=== PATIENT | female | born 1985 | race Caucasian/White ===

== ENCOUNTER 2017-08-22 06:53 | Observation (INO) | payer OTHER ==
--- NOTE | 2017-08-18 21:42 | PDGENHP ---
History and Physical History and Physical: Assessment and Plan: 1. Endometriosis determined by laparoscopy Sharla was found to have a 1.5 cm cystic structure consistent consistent with endometriosis in the right vaginal fornix. I could palpate it through the rectum. She was sent downstairs for a CT scan to rule out any rectal involvement. None was seen. We again reviewed all conservative and surgical options. At the end of the discussion she wished to proceed with robotic excision of endometriosis. The risks benefits and alternatives were presented and informed consent was obtained. 2. Dysmenorrhea 3. Endometriosis, rectovaginal septum - CT PELVIS WITH CONTRAST; Future Subjective: Patient ID: Sharla Nolan is a 31 y.o. female who presents to [facility] for endometriosis. LAURA Magdaleno is a 31-year-old 0 woman with endometriosis. She has a long history of dysmenorrhea and pelvic pain. In October 2012 she underwent excision of a 6 cm left ovarian endometrioma by Dr. Rafa De Anda in [place]. Unfortunately her pain persisted. She underwent a hysterosalpingogram in March 2016 which showed normal spillage from both tubes. She developed a recurrent endometrioma with continued pain and underwent a second laparoscopy in November 2016. She was found to have an obliterated cul-de-sac with extensive endometriosis. Dr. De Anda removed her left tube and ovary. I was able to review intraoperative photos which are in her EPIC chart showing the sigmoid attached to the lower uterine segment and cervix with endometriosis throughout the posterior cul-de-sac as well as on the surface of the right ovary which was still present at the conclusion of the procedure. Sharla continues to suffer from dysmenorrhea, pelvic pain, and dyschezia. She has tried various contraceptive options without benefit. She is recently . 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 However she recently moved back to [place] is working as a certified ski patroller. We reviewed all conservative and surgical options. She wishes to pursue surgical intervention given her poor quality of life. This will be a robotic excision of endometriosis. I will need to clear out the entire posterior cul-de -sac and both ovarian fossas. She also was reported to have deep endometriosis in the anterior cul-de-sac which will require complete excision. 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 COQ10, LIPOSOMAL UBIQUINOL, PO Take 100 mg by mouth daily. DULoxetine (CYMBALTA) [address] capsule Take 20 mg by mouth daily. fluticasone (FLONASE) 50 mcg/actuation nasal spray Use 2 sprays in each nostril daily as needed for Allergies. HYDROcodone-acetaminophen (NORCO) #6 tablet pre-pack Take 1-2 tablets by mouth every 6 hours as needed. This med has acetaminophen (APAP). LACTOBACILLUS ACIDOPHILUS (PROBIOTIC PO) Take 1 tablet by mouth daily. levothyroxine (SYNTHROID) 75 mcg tablet 75 mcg daily. multivitamin w/ minerals (THERAPEUTIC-M) 27-0.4 mg tablet Take 1 tablet by mouth daily. GD-Ckn-Hwufq Acid-Lutein 0.4-250 mg-mcg Tab Take by mouth daily. MARTIN-BE 0.35 mg tablet Take 1 tablet by mouth nightly at bedtime. omega-3 acid ethyl esters, fish oil, (LOVAZA) 1 gram capsule Take 2 g by mouth 2 times daily. omeprazole (PRILOSEC) 20 mg capsule for Gastric Ulcer. Take 1 capsule by mouth twice a day for 2 weeks and then 1 capsule once daily thereafter. oxyCODONE (ROXICODONE) 5 mg immediate release tablet Take 5-10 mg by mouth every 6 hours as needed. prazosin (MINIPRESS) 1 mg capsule Take 1 mg by mouth nightly at bedtime. PSYLLIUM SEED, WITH SUGAR, (METAMUCIL PO) Take 2 capsules by mouth nightly at bedtime. [place] Jelly-Bee Pollen-Ginseng 50-150-250 mg Cap Take 1 capsule by mouth nightly at bedtime. SODIUM CHLORIDE (SALINE NASAL NA) 1 spray by Nasal route as needed. traMADol (ULTRAM) 50 mg tablet Take 50 mg by mouth as needed. traZODone (DESYREL) 50 mg tablet Take 50 mg by mouth nightly at bedtime for insomnia associated with depression. No current facility-administered medications for this visit. Facility-Administered Medications Ordered in Other Visits Medication NS irrigation bag 1000 mL (for OR) ALLERGIES: Nsaids (non-steroidal anti-inflammatory drug) I have reviewed, verified and agree with the past medical, surgical, , family, social and ROS history as documented by the RN today. Objective: Vital Signs: There were no vitals taken for this visit. Physical Exam Gen: This is an alert, well developed woman in no distress. Neuro: She moves all extremities. Psych: She is appropriate, oriented, with normal affect. Neck: No thyroid enlargement, adenopathy, or tenderness. Lungs: Clear to ascultation, no wheezes or rales. Heart: Regular rate and rhythm without obvious murmurs. Abdomen: Soft, non-tender, without guarding, rebound, or masses. Extremities: No edema or cyanosis. Pelvic: Normal external genitalia. Non-gaping introitus, vagina without discharge, adequately estrogenized, no significant prolapse. There is a 1.5 x 2 cm rectal endovaginal nodule in the right posterior fornix adjacent to the cervix. This is palpable on rectal exam bulging and distorting the right anterolateral rectal wall. It does not appear to involve the rectal mucosa. The area is exquisitely tender. The uterus is normal sized with minimal mobility. Uterus and adnexa are tender. Cervix without lesions or discharge. DATA: I have reviewed the pertinent medical records. TIME/COMMUNICATION: I personally spent a total of 70 minutes. Of that 55 minutes was counseling/ coordination of patient's care. See my note above for details. German Alcaraz MD Board Certified Female Pelvic Medicine and Reconstructive Surgery Director of Minimally Invasive Gynecologic Surgery, [facility] Surgeon in Minimally Invasive Gynecologic Surgery [facility] Surgeon in Robotic Surgery
[2017-08-22] MEDS ORDERED: ACETAMINOPHEN 500 MG TAB PO ONE (07:25)
[2017-08-22] MEDS ORDERED: ceFAZolin 2 GM/SWFI 2 GM/20 ML SYR IVP ONE (07:25)
[2017-08-22] MEDS ORDERED: PHENAZOPYRIDINE HCL 200 MG TAB PO ONE (07:25)
[2017-08-22] MEDS ORDERED: GABAPENTIN 400 MG CAP PO ONE (07:25)
[2017-08-22] MEDS ORDERED: LIDOCAINE 1% 2 ML INJ ID PRN (07:26)
[2017-08-22] MEDS ORDERED: LR 1,000 ML IV ONE (07:26)
--- NOTE | 2017-08-22 08:46 | PDHPUP ---
History & Physical Update H&P update statement: This history and physical update is based on an assessment of the patient which was completed after admission or registration (within 24 hours), but prior to the surgery/procedure. H&P update: H&P reviewed & patient examined, no change in patient's condition since H&P completed
[2017-08-22] MEDS ORDERED: BUPIVACAINE/EPI 0.5% 30 ML SDV ONE (09:01)
[2017-08-22] MEDS ORDERED: SCOPOLAMINE HYDROBROMIDE 1 MG/3 DAYS PATCH TD ONE (09:03)
[2017-08-22] MEDS ORDERED: fentaNYL 100 MCG/2 ML INJ ONE ×3 (09:12→12:37)
[2017-08-22] MEDS ORDERED: MIDAZOLAM 2 MG/2 ML VIAL ONE (09:13)
[2017-08-22] MEDS ORDERED: PROPOFOL/EMULSION 500 MG/50 ML BOTTLE IV ONE (09:13)
[2017-08-22] MEDS ORDERED: ROCURONIUM 50 MG/5 ML VIAL ONE ×3 (09:33→11:18)
[2017-08-22] MEDS ORDERED: SUGAMMADEX SODIUM 200 MG/2 ML VIAL IVP ONE (09:33)
[2017-08-22] MEDS ORDERED: LIDOCAINE 2% 100 MG/5 ML SYR ONE (09:33)
[2017-08-22] MEDS ORDERED: KETOROLAC 30 MG/1 ML SDV ONE (09:33)
[2017-08-22] MEDS ORDERED: ONDANSETRON 4 MG/2 ML VIAL ONE (09:33)
[2017-08-22] MEDS ORDERED: DEXAMETHASONE 4 MG/ML VIAL ONE (09:33)
[2017-08-22] MEDS ORDERED: METOCLOPRAMIDE 10 MG/2 ML VIAL ONE (09:33)
[2017-08-22] MEDS ORDERED: LIDOCAINE 2% 5 ML SDV ONE (09:33)
[2017-08-22] MEDS ORDERED: RANITIDINE 50 MG/2 ML VIAL ONE (09:33)
[2017-08-22] MEDS ORDERED: ACETAMINOPHEN 500 MG TAB PO PRN (09:48)
[2017-08-22] MEDS ORDERED: ONDANSETRON 4 MG/2 ML VIAL IVP PRN ×2 (09:48→12:34)
[2017-08-22] MEDS ORDERED: ALBUTEROL 3 ML DEYVIAL IH PRN (09:48)
[2017-08-22] MEDS ORDERED: PROMETHAZINE HCL 25 MG/ML INJ IVP PRN ×2 (09:48→12:33)
[2017-08-22] MEDS ORDERED: METOCLOPRAMIDE 10 MG/2 ML VIAL IVP PRN (09:48)
[2017-08-22] MEDS ORDERED: LR 500 ML IV PRN (09:48)
[2017-08-22] MEDS ORDERED: NALOXONE HCL 0.4 MG/ML INJ IVP PRN (09:48)
[2017-08-22] MEDS ORDERED: MEPERIDINE 25 MG/ML SYR IVP PRN (09:48)
[2017-08-22] MEDS ORDERED: HYDROCODONE/APAP 5/325 TAB PO PRN (09:48)
[2017-08-22] MEDS ORDERED: DEXAMETHASONE 4 MG/ML VIAL IVP PRN (09:48)
[2017-08-22] MEDS ORDERED: oxyCODONE IR 5 MG TAB PO PRN (09:48)
--- NOTE | 2017-08-22 09:48 | PDANEPAE ---
ANE Past Medical History - Cardiovascular History Hx Hypertension: No Hx Arrhythmias: No Hx Chest Pain: No Hx Coronary Artery / Peripheral Vascular Disease: No Hx CHF / Valvular Disease: No Hx Palpitations: No Cardiovascular History Comment: prone to borderline anemia - Pulmonary History Hx COPD: No Hx Asthma/Reactive Airway Disease: No Hx Recent Upper Respiratory Infection: No Hx Oxygen in Use at Home: No Hx Sleep Apnea: No Sleep Apnea Screening Result - Last Documented: Negative - Neurologic History Hx Cerebrovascular Accident: No Hx Seizures: No Hx Dementia: No - Endocrine History Hx Diabetes: No Endocrine History Comment: Hu's, hypoglycemia - Renal History Hx Renal Disorders: No - Liver History Hx Hepatic Disorders: No - Neurological & Psychiatric Hx Hx Neurological and Psychiatric Disorders: Yes Neurological / Psychiatric History Comment: hx of depression,anxiety-no Rx - Cancer History Hx Cancer: No - Congenital Disorder History Hx Congenital Disorders: No - GI History Hx Gastrointestinal Disorders: Yes Gastrointestinal History Comment: constipation - Other Health History Other Health History: bowel endometriosis-sigmoid colon; Vit D deficiency; - Chronic Pain History Chronic Pain: Yes ("all over my body") - Surgical History Prior Surgeries: laparoscope x2. L salpingoo/ophorectomy ANE Review of Systems Review of Systems: - Exercise capacity METS (RN): 4 METS ANE Patient History - Allergies Allergies/Adverse Reactions: No Known Allergies Allergy (Unverified 07/24/17 11:22) - Home Medications Home Medications: Hydrocodone/Acetaminophen 07/24/17 [Last Taken 07/24/17] Levothyroxine 07/24/17 [Last Taken 08/22/17 05:00] Naloxegol Oxalate BID 07/24/17 [Last Taken 08/21/17 15:00] Senna 07/24/17 [Last Taken 07/24/17] traZODone 07/24/17 [Last Taken 08/08/17] - NPO status NPO Since - Liquids (Date): 08/22/17 NPO Since - Liquids (Time): 07:30 NPO Since - Solids (Date): 08/21/17 NPO Since - Solids (Time): 16:30 - Smoking Hx Smoking Status: Never smoked ANE Labs/Vital Signs - Vital Signs Blood Pressure: 119/87 Heart Rate: 78 Respiratory Rate: 16 O2 Sat (%): 100 Height: 154.94 cm Weight: 48.988 kg ANE Physical Exam - Airway Neck exam: FROM Mallampati Score: Class 1 Mouth exam: normal dental/mouth exam - Pulmonary Pulmonary: no respiratory distress, no rales or rhonchi, clear to auscultation - Cardiovascular Cardiovascular: regular rate and rhythym, no murmur, rub, or gallop - ASA Status ASA Status: II ANE Anesthesia Plan Anesthesia Plan: general endotracheal anesthesia
[2017-08-22] MEDS ORDERED: PROPOFOL 200 MG/20 ML VIAL ONE (11:17)
[2017-08-22] MEDS ORDERED: HYDROmorphONE/DILAUDID 1 MG/ML INJ IVP PRN (12:33)
--- NOTE | 2017-08-22 12:33 | POSTOPPROG ---
Post Op Note Date of Operation: 08/22/17 Surgeon: German Alcaraz Center Machine Set Up Operator: Veronica Cardenas Anesthesiologist: Meera Camp Anesthesia: GET(General Endotracheal) Pre-op Diagnosis: Endometriosis, pelvic pain Post-op Diagnosis: Same Procedure: Robotic excision of endo, rectal lesion, bilat ureterolysis, Rt ovarianpexy Findings: Ureters function at end of case Inf/Abcess present in the surg proc area at time of surgery?: No EBL: Minimal Complications: None Specimen(s): Endometriosis Rectal lesion Vaginal lesion Right ovarian endometrioma
[2017-08-22] MEDS ORDERED: DIAZEPAM 5 MG/ML 1 ML SYR ONE (12:37)
[2017-08-22] MEDS: fentaNYL 100 MCG/2 ML INJ IVP PRN ×2 (12:38→12:43)
[2017-08-22] MEDS: DIAZEPAM 5 MG/ML 1 ML SYR IVP PRN ×2 (12:55→13:11)
[2017-08-22] MEDS ORDERED: LR 1,000 ML IV SCH (13:00)
--- NOTE | 2017-08-22 13:10 | POSTANESTH ---
Post Anesthetic Evaluation Cardiovascular Status: Normal, Stable, Similar to Pre-Op Cond Respiratory Status: Normal, Stable, Similar to Pre-op Cond. Level of Consciousness/Mental Status: Can Participate in Eval Pain Control: Adequate, Prn Tx Ordered Nausea/Vomiting Control: Adequate, Prn Tx Ordered Complications Possibly Related to Anesthesia: None Noted
[2017-08-22] MEDS ORDERED: ceFAZolin 2 GM/DEXTROSE 100 ML IV SCH (14:00)
[2017-08-22] MEDS: OXYCODONE/APAP 5/325 TAB PO PRN ×2 (14:30→20:16)
[2017-08-22] MEDS: SIMETHICONE 80 MG TAB CHEW PO SCH ×3 (14:30→21:35)
[2017-08-22] MEDS: GABAPENTIN 100 MG CAP PO SCH ×3 (14:37→21:35)
--- NOTE | 2017-08-22 16:00 | GOP ---
[f rep st] OPERATIVE REPORT DATE OF OPERATION: 08/22/2017 SURGEON: German Alcaraz MD WOOL DYER: DELBERT Plunkett. ANESTHESIA: General. PREOPERATIVE DIAGNOSIS: 1. Stage IV endometriosis. 2. Dysmenorrhea. 3. Cyclic pelvic pain. 4. Dyschezia. POSTOPERATIVE DIAGNOSIS: 1. Stage IV endometriosis. 2. Dysmenorrhea. 3. Cyclic pelvic pain. 4. Dyschezia. PROCEDURE PERFORMED: 1. Robotic excision of extensive endometriosis in the anterior-posterior cul-de-sacs and bilateral p elvic side hernandez. 2. Excision of endometriosis on the right hemidiaphragm. 3. Excision of rectal nodule. 4. Bilateral ureterolysis. 5. Partial right oophorectomy. 6. Right ovarian pexy. 7. Cystoscopy. FINDINGS: SPECIMENS: 1. Pelvic peritoneum with endometriosis. 2. Rectal nodule. 1. Portion of right ovary. 3. ESTIMATED BLOOD LOSS: Scant. DESCRIPTION OF PROCEDURE: The patient was taken to the operating room, where she was identified. Ge neral anesthesia was administered and found to be adequate. She was placed in the lithotomy position and prepared and draped in normal sterile fashion. A Lazar catheter was placed in her bladder. A GIDEEN Care uterine manipulator was placed into the endometrial cavity. A 1 cm infraumbilical incision was made with a scalpel. The Veress needle with the CO2 gas flowing w as advanced into the peritoneal cavity. The abdomen was then insufflated with carbon dioxide gas. T he 12 mm trocar followed by the laparoscope were then inserted. The upper abdomen had several lesion s of endometriosis on the right hemidiaphragm. There were none on the left diaphragm. The liver, ga llbladder and stomach were otherwise unremarkable. Two lateral ports were placed on either side unde r direct visualization. The laparoscopic scissors were used to excise and fulgurate the diaphragmati c lesions. She had been placed in reverse Trendelenburg for this portion of the procedure. Once thi s was accomplished, she was then placed in Trendelenburg and the da Craig robot docked on the left si de. The instruments were then brought into the abdominal cavity under direct visualization. The patient had multiple lesions of endometriosis in the anterior cul-de-sac, many of which were deep er. This entire area was completely excised en bloc. The lesions at the pelvic brims were excised. The patient had a right ovarian endometrioma which was excised. She had multiple lesions on the ana face of the right ovary. Several were fulgurated. Some were concentrated in 1 area. The entire are a was removed en bloc with a small portion of the right ovarian stroma, unfortunately. Given her cyc lic pelvic pain and adhesions, a right ovarian pexy was performed. The right ovary was attached to t he round ligament near the internal inguinal ring with 3-0 Vicryl Rapide suture. Attention was then turned to the pelvic sidewall endometriosis. This required a bilateral ureterolysis given extent of the disease. The peritoneum at the pelvic brims was incised. The ureters were gently dissected free and lateralized from the pelvic brim all the way down to the uterine arteries bilaterally. Once was accomplished, the overlying peritoneum and endometriosis of the complete pelvic sidewalls was comple tely excised down to the rectum in cervix. Finally, attention was then turned to the posterior cul-d e-sac. The rectum was densely adherent to the cervix and lower uterine segment from known endometrio sis. She also was known to have a right parametrial endometrioma extending into the left lateral sul cus of the vagina. The rectum was gently dissected free by entering the rectovaginal space laterally and distally and then moving more proximally to separate from posterior vagina. A colpotomy incisio n was made along the VCare ring to enter the vagina. I was then able to visualize the entire extent of the vaginal extension. The entire nodular fibrotic lesion attached to both the rectum, the rectov aginal space, and the left lateral sulcus was completely excised. This then freed the rectum from th e cervix and posterior vagina. All specimens were then placed in the vagina for removal. The colpot prateek incision was then closed with a running 0 V-Loc 180 suture. The pelvis was then irrigated with s terile saline and hemostasis was present. Two sheets of Interceed were placed in the posterior cul-d e-sac and pelvic sidewalls to minimize postoperative adhesion formation. A rectal probe had been savanna valencia to help identify the margin of the rectum. This was removed, followed by the VCare. No evidence of bowel or bladder injury was visualized. The robot was then undocked. The fascia was closed with 0 Vicryl, skin with 4-0 Monocryl and surgical adhesive. Cystoscopy was then performed. Both ureters had vigorous jets of urine. There was no evidence of bl adder nor urethral injury seen. No obvious pathology was seen within the bladder. The Lazar cathete r was then replaced, anesthesia was reversed, and the patient taken to PACU awake, in stable conditio n. COMPLICATIONS: None. DISPOSITION: Patient stable to PACU. /[id number]/MODL
[2017-08-22] MEDS: ceFAZolin 2 GM/SWFI 2 GM/20 ML SYR IVP SCH (17:10)
[2017-08-22] MEDS: ONDANSETRON DISINTEGRATING 4 MG TAB PO PRN (17:42)
[2017-08-22] MEDS: KETOROLAC 30 MG/1 ML SDV IVP SCH ×2 (18:37→23:43)
[2017-08-22] MEDS ORDERED: traZODone 50 MG TAB PO SCH (21:00)
[2017-08-22] MEDS: DOCUSATE SODIUM 100 MG CAP PO SCH (21:35)
[2017-08-23] MEDS: ceFAZolin 2 GM/SWFI 2 GM/20 ML SYR IVP SCH (00:59)
[2017-08-23] MEDS: OXYCODONE/APAP 5/325 TAB PO PRN ×2 (01:10→08:35)
[2017-08-23] MEDS: ONDANSETRON DISINTEGRATING 4 MG TAB PO PRN (01:10)
[2017-08-23] MEDS ORDERED: LEVOTHYROXINE 75 MCG TAB PO SCH (06:00)
[2017-08-23] MEDS: KETOROLAC 30 MG/1 ML SDV IVP SCH (06:00)
[2017-08-23 06:32] LABS: PLATELET COUNT 334 10^3/uL (150-400)
--- NOTE | 2017-08-23 07:48 | SOAPPROG ---
SOAP Progress Note Assessment/Plan: Assessment: Doing well this morning. Plan: 08/23/17 07:47 Discharge home Instructions reviewed. F/U next week. Subjective: No complaints. Ambulating, voiding, tolerating gen diet. Objective: Vital Signs Temp Pulse Resp BP Pulse Ox 36.8 C 83 16 101/71 98 08/23/17 04:00 08/23/17 04:00 08/23/17 04:00 08/23/17 04:00 08/23/17 04:00 Laboratory Results 08/23/17 06:28 08/22/17 08/23/17 08/24/17 05:59 05:59 05:59 Output Total 1300 Balance -1300 Physical Exam - Physical Exam General Appearance: WD/WN, alert, no apparent distress Respiratory: lungs clear Cardiac/Chest: regular rate, rhythm Abdomen: normal bowel sounds, non-tender, soft Skin: normal color, warm/dry Neuro/Psych: alert, normal mood/affect (Incisions clean, dry, and intact) ICD10 Worksheet Patient Problems: Problems Problem Status Onset Endometriosis of colon Acute Endometriosis of pelvic peritoneum Acute
[2017-08-23] MEDS: DOCUSATE SODIUM 100 MG CAP PO SCH (08:30)
[2017-08-23] MEDS: SIMETHICONE 80 MG TAB CHEW PO SCH (08:30)
--- NOTE | 2017-08-23 08:33 | GDS ---
[f rep st] DISCHARGE SUMMARY DISCHARGE DIAGNOSIS: 1. Endometriosis. 2. Pelvic pain. 3. Dysmenorrhea. 4. Dyschezia. PROCEDURES: 1. Robotic excision of extensive endometriosis in the pelvis and on the diaphragm including a large rectovaginal nodule extending into the left vaginal fornix. 2. Bilateral ureterolysis. 3. Excision of right ovarian endometrioma. 4. Right ovariopexy. 5. Cystoscopy. HISTORY: Sharla is a 31-year-old female with a long history of endometriosis and 2 prior laparoscop ies which only performed minimal fulguration. She previously had her left tube and ovary removed. S sadie was taken to the operating room on 08/22/2017, where she underwent excision of all lesions of endo metriosis including a large rectovaginal nodule. Her postoperative course was uneventful. The morning after surgery she was ambulating, voiding, and tolerating a general diet. She was discharged home on postoperative day #1 in good condition. Medic ations included Percocet, ibuprofen and all of her normal home medications. She is to follow up in t office 1 week after discharge. /[id number]/MODL
[2017-08-23] MEDS: GABAPENTIN 100 MG CAP PO SCH (08:35)
[2017-08-23 08:45] VITALS: BP 109/75
== END 2017-08-23 09:45 | disposition home or self-care (01) ==
LOC: FSGY 06:53 → F3E 12:34 → FOB 14:25
PROVIDERS: ADMIT Obstetrics & Gynecology; ATTEND Obstetrics & Gynecology
PROC: 0UBF8ZX Excision of Cul-de-sac, Via Natural or Artificial Opening Endoscopic, Diagnostic (ICD-10-PCS; principal; 2017-08-22 09:15)
PROC: 0UB Female Reproductive System, Excision (ICD-10-PCS; principal; 2017-08-22 09:15)
PROC: 0UBG8ZX Excision of Vagina, Via Natural or Artificial Opening Endoscopic, Diagnostic (ICD-10-PCS; principal; 2017-08-22 09:15)
PROC: 0U5 Female Reproductive System, Destruction (ICD-10-PCS; principal; 2017-08-22 09:15)
PROC: 0DBP8ZX Excision of Rectum, Via Natural or Artificial Opening Endoscopic, Diagnostic (ICD-10-PCS; principal; 2017-08-22 09:15)
PROC: 0US Female Reproductive System, Reposition (ICD-10-PCS; principal; 2017-08-22 09:15)
PROC: 8E0W4CZ Robotic Assisted Procedure of Trunk Region, Percutaneous Endoscopic Approach (ICD-10-PCS; principal; 2017-08-22 09:15)
DX: N80.3 Endometriosis of pelvic peritoneum (principal); N80.1 Endometriosis of ovary; N80.4 Endometriosis of rectovaginal septum and vagina; N80.8 Other endometriosis; N94.6 Dysmenorrhea, unspecified; R10.2 Pelvic and perineal pain; F32.9 Major depressive disorder, single episode, unspecified; E03.9 Hypothyroidism, unspecified; Z90.721 Acquired absence of ovaries, unilateral
CPT/HCPCS: 58661; 58662; 58679; C1765; G0378; J0690; J1100; J1885; J2001; J2250; J2270; J2405; J2704; J2765; J2780; J3010; J3360